=== PATIENT | male | born 1975 ===

== ENCOUNTER 2022-08-23 12:13 | Emergency (ER) ==
[2022-08-23] MEDS ORDERED: Diazepam 5 MG Tab PO ONE (20:12)
[2022-08-23] MEDS ORDERED: Ibuprofen 600 MG Tab PO ONE (20:12)
== END 2022-08-23 22:00 | disposition home or self-care (01) ==
LOC: MW.ED 12:13
DX: R51.9 Headache, unspecified (principal)
CPT/HCPCS: 70450; 99284; A9270